=== PATIENT | female | born 1995 | race Caucasian/White ===

== ENCOUNTER 2019-10-27 19:33 | Emergency (ER) | payer BC, OTHER, SELFPAY ==
[2019-10-27 19:43] VITALS: BP 131/76; PULSE 91; RESP 16; TEMP 37.2; O2SAT 100
[2019-10-27 19:44] VITALS: O2SAT 100
--- NOTE | 2019-10-27 19:47 | ED.GENADULT ---
HPI - General Adult General Chief complaint: Upper Respiratory Infection Stated complaint: Congestion Time Seen by Provider: 10/27/19 19:50 Source: patient and RN notes reviewed Mode of arrival: ambulatory Limitations: no limitations History of Present Illness HPI narrative: This is a 24 years old female presented office for evaluation of cough for 2-day. Cough is really bad today with chest tightness. Admits to history of asthma. She took her albuterol inhaler with no relief. Her daughter is sick with cold symptoms. No other treatment prior to arrival except hot shower. She does not smoke. Related Data Home Medications Medication Instructions Recorded Confirmed albuterol sulfate [ProAir HFA] 2 puff INHALATION Q4-6H PRN 10/27/19 10/27/19 Allergies Allergy/AdvReac Type Severity Reaction Status Date / Time codeine AdvReac Intermediate NAUSEA/VOMI Verified 10/27/19 19:36 TING Review of Systems Review of Systems: Narrative: CONSTITUTIONAL:Denies fever ENT: Reports head congestion CARDIOVASCULAR: Denies chest pain except when she coughs RESPIRATORY: Reports dyspnea, cough GASTROINTESTINAL: Denies abdominal pain, nausea, vomiting, diarrhea. GENITOURINARY: Denies urinary symptoms or discharge SKIN: Denies rash MUSCULOSKELETAL: Denies acute back pain NEUROLOGIC: Denies lightheaded PMFSH Past Medical History Medical History (Updated 10/27/19 @ 19:54 by MELANIE Dia) ADHD Asthma Surgical History Surgical History (Updated 09/08/19 @ 18:50 by Le Moreau) History of tonsillectomy Social History Social History (Updated 09/08/19 @ 18:51 by Le Moreau) Smoking status: Never smoker Gender identity (if verbalized by the patient): Female Comments At time of signature, I agree with nursing past medical, surgical, social and family history. There is no relevant family history pertinent to the presenting complaint. Exam Narrative: Exam Narrative: GENERAL: This is a well-nourished, well-developed patient, in no apparent distress,Able to talk full sentences. EYES: sclera clear/white. Vision is grossly intact. EARS: External ears normal, auditory canals clear and without drainage, TMs normal without perforation. Hearing grossly intact. NOSE: External nose normal with no obvious nasal discharge, nares without redness, no rhinorrhea. THROAT: Mucous membranes moist, posterior pharynx clear. NECK: Neck supple, non-tender without lymphadenopathy, masses or thyromegaly. CARDIOVASCULAR: Regular rate and rhythm without murmurs, gallops, or rubs. RESPIRATORY: Clear to auscultationWith occasional cough noted during examination. Breath sounds equal bilaterally. No wheezes, rales, or rhonchi. No use of accessory muscles or pulse lip breathing. GASTROINTESTINAL: Abdomen soft, non-tender, nondistended. Bowel sounds are active. No hepato-splenomegaly, or palpable masses. No guarding. SKIN: warm, intact with no suspicious lesions or rash, good texture and turgor. NEURO: awake, alert, and oriented to person, place and time. There were no obvious focal neurologic abnormalities. Steady gait Candi Coma Scale Eye Opening: Spontaneous 4 [place] Coma Scale Motor: Obeys Commands 6 [place] Coma Scale Verbal: Oriented 5 Course Vital Signs Vital signs: Vital Signs Temperature 99.0 F 10/27/19 19:43 Pulse Rate 91 10/27/19 19:43 Respiratory Rate 16 10/27/19 19:43 Blood Pressure 131/76 10/27/19 19:43 Pulse Oximetry 100 10/27/19 19:43 Temperature 99.0 F 10/27/19 19:43 Pulse Rate 91 10/27/19 19:43 Respiratory Rate 16 10/27/19 19:43 Blood Pressure 131/76 10/27/19 19:43 Pulse Oximetry 100 10/27/19 19:43 Medical Decision Making MDM Narrative Medical decision making narrative: Discharge instructions reviewed with patient, as well as provided in writing per nursing staff. The instructions also include specific and strict return/GO TO THE ER as well as f/u information.
== END 2019-10-27 19:59 | disposition home or self-care (01) ==
PROVIDERS: Emergency Provider Nurse Practitioner
DX: J45.20 Mild intermittent asthma, uncomplicated (principal)
CPT/HCPCS: 99213; G0463

== ENCOUNTER 2021-03-10 15:00 | Emergency (ER) | payer BC, OTHER, SELFPAY ==
[2021-03-10 15:14] VITALS: BP 130/76; PULSE 101; RESP 16; TEMP 36.8; O2SAT 99
--- NOTE | 2021-03-10 15:37 | ED.GENADULT ---
HPI - General Adult General Chief complaint: Urogenital-Female Stated complaint: uti Time Seen by Provider: 03/10/21 15:37 Source: patient and RN notes reviewed Mode of arrival: ambulatory Limitations: no limitations History of Present Illness HPI narrative: 26-year-old female presents with urinary complaints for the past 5 days. Domonique reports increasing symptoms daily. Dysuria consists of burning and frequency. ?Azo was taken last today in the AM without relief. ?Denies fever. ?No significant pelvic pain. ?No vaginal discharge.? No concerns for STDs. ?Exacerbating factors urinating.? Denies hematuria or vaginal bleeding. ?LMP 02/16/2021. No flank pain. ?Denies nausea, vomiting, and abdominal pain.? Tolerating liquids well.? Remains active. ?The patient reports she has not been diagnosed with COVID-19. The patient reports she is not waiting for the results of a COVID-19 lab test. ?The patient reports he does not have chills, weakness, or fatigue. ?The patient reports he does not have a new or worsening cough or shortness of breath. ?Denies chest pain. ?The patient reports he does not have any rhinorrhea, congestion, loss of taste or smell, sore throat, and diarrhea. ?Denies recent traveling. Denies concerns for COVID-19 or exposures. ?At this time, the patient is not suspected of having COVID-19. ? Some parts of this dictation were generated by voice recognition software and may contain typographical and/or grammatical inaccuracies. Related Data Home Medications Medication Instructions Recorded Confirmed albuterol sulfate [ProAir HFA] 2 puff INHALATION Q4-6H PRN 10/27/19 10/27/19 Allergies Allergy/AdvReac Type Severity Reaction Status Date / Time codeine AdvReac Intermediate NAUSEA/VOMI Verified 10/27/19 19:36 TING Review of Systems Review of Systems: Narrative: CONSTITUTIONAL: Denies fever, chills, sweats. EYES: Denies visual changes, redness, discharge. ENT: Denies rhinorrhea, congestion, sore throat, otalgia. CARDIOVASCULAR: Denies chest pain, palpitations, edema. RESPIRATORY: Denies dyspnea, wheezing, cough. GASTROINTESTINAL: Denies abdominal pain, nausea, vomiting, diarrhea. GENITOURINARY: Complains of dysuria (burning and frequency). Denies hematuria, abnormal discharge. SKIN: Denies rash or itching. MUSCULOSKELETAL: Denies acute back pain, joint pain, or myalgia. NEUROLOGIC: Denies numbness or focal weakness. PSYCHIATRIC: Denies anxiety or depression. All systems reviewed & are unremarkable except as noted in HPI and below. [facility] Past Medical History Medical History ADHD Asthma Surgical History Surgical History History of tonsillectomy Family History Family History (Updated 03/10/21 @ 15:51 by MELANIE Gaston) Father Asthma Mother Alive and well Social History Social History (Updated 03/10/21 @ 15:51 by MELANIE Gaston) Smoking packs per day: 0.5 Smoking cigarettes per day: 10.0 Years smoked: 3.5 Smoking pack-years: 1.75 Smoking status: Current every day smoker Tobacco type: cigarettes Second hand tobacco smoke exposure: Yes (significant other) Alcohol intake: current Substance use: never Substance use type: does not use Living arrangements: with family Occupation/Education: occupation Gender identity (if verbalized by the patient): Female Sexual Orientation (if Verbalized by the Patient): Straight or Heterosexual Comments At time of signature, agree with the nurse past medical, surgical, social, and family history.? There is no relevant family history pertinent to the presenting complaint. Exam Narrative: Exam Narrative: GENERAL: This is a well-nourished, well-developed patient, in no apparent distress.? Talks in full sentences and ambulates with steady gait without dyspnea. HEAD: Normocephalic, atraumatic. EYES: PERRL. Scler
== END 2021-03-10 15:54 | disposition home or self-care (01) ==
PROVIDERS: Emergency Provider Nurse Practitioner Family
DX: R30.0 Dysuria (principal); F17.210 Nicotine dependence, cigarettes, uncomplicated; F90.9 Attention-deficit hyperactivity disorder, unspecified type; J45.909 Unspecified asthma, uncomplicated
CPT/HCPCS: 81003; 87077; 87086; 87088; 87186; 99213; G0463

== ENCOUNTER 2021-03-31 10:20 | Emergency (ER) | payer BC, OTHER, SELFPAY ==
[2021-03-31 10:29] VITALS: BP 117/71; PULSE 99; RESP 16; TEMP 36.6; O2SAT 99
--- NOTE | 2021-03-31 10:43 | ED.FEMALEGU ---
HPI - Female Genitourinary General Chief complaint: Urogenital-Female Stated complaint: UTI Time Seen by Provider: 03/31/21 10:44 Source: patient Mode of arrival: ambulatory Limitations: no limitations History of Present Illness HPI Narrative: Domonique Anderson is a 26 yo female with a history for UTI who [facility] complaining of dysuria. She was treated 2 to 3 weeks ago with Macrobid for similar symptoms. Mild suprapubic pain. Related Data Home Medications Medication Instructions Recorded Confirmed albuterol sulfate [ProAir HFA] 2 puff INHALATION Q4-6H PRN 10/27/19 03/31/21 Allergies Allergy/AdvReac Type Severity Reaction Status Date / Time codeine AdvReac Intermediate NAUSEA/VOMI Verified 03/31/21 10:43 TING Review of Systems Review of Systems: Narrative: CONSTITUTIONAL: Denies fever, chills, sweats. EYES: Denies visual changes, redness, discharge. ENT: Denies rhinorrhea, congestion, sore throat, otalgia. CARDIOVASCULAR: Denies chest pain, palpitations, edema. RESPIRATORY: Has dyspnea, wheezing, cough GASTROINTESTINAL: Denies abdominal pain, nausea, vomiting, diarrhea. GENITOURINARY: Denies dysuria, hematuria, abnormal discharge SKIN: Denies rash or itching. NEUROLOGIC: Denies numbness, or focal weakness. PSYCHIATRIC: Denies anxiety or depression. [facility] Past Medical History Medical History ADHD Asthma Surgical History Surgical History History of tonsillectomy Family History Family History (Updated 03/31/21 @ 10:51 by Lauren Rowe CNP) Father Asthma Mother Alive and well Social History Social History Smoking packs per day: 0.5 Smoking cigarettes per day: 10.0 Years smoked: 3.5 Smoking pack-years: 1.75 Smoking status: Current every day smoker Tobacco type: cigarettes Second hand tobacco smoke exposure: Yes (significant other) Alcohol intake: current Substance use: never Substance use type: does not use Gender identity (if verbalized by the patient): Female Comments At time of signature, I agree with nursing past medical, surgical, social and family history. There is no relevant family history pertinent to the presenting complaint. Exam Narrative: Exam Narrative: GENERAL: This is a well-nourished, well-developed patient, in mild distress. HEAD: normocephalic, atraumatic. EYES: Sclera clear/white. Vision is grossly intact. EARS: External ears normal, Hearing grossly intact. NOSE: External nose normal without nasal discharge, nares without redness, no rhinorrhea. THROAT: Mucous membranes moist, NECK: Neck supple, CARDIOVASCULAR: Regular rate and rhythm without murmurs, gallops, or rubs. RESPIRATORY: Clear to auscultation. Breath sounds equal bilaterally. No wheezes, rales, or rhonchi. GASTROINTESTINAL: Abdomen soft, SKIN: warm, intact with no suspicious lesions or rash, good texture and turgor. NEURO: awake, alert, and oriented to person, place and time. There were no obvious focal neurologic abnormalities. Steady gait EXTREMITIES: Normal range of motion. BACK: Nontender without deformity Course Course Emergency Course: [facility] with complaints of recurrent dysuria and burning with urination, she was treated 2 weeks ago with Macrobid Urine dip was negative for everything except trace leukocytes Started on ceftriaxone started on cephalexin 500 mg twice daily x3 days Referred to urologist Vital Signs Vital signs: Vital Signs Temperature 97.8 F 03/31/21 10:29 Pulse Rate 99 03/31/21 10:29 Respiratory Rate 16 03/31/21 10:29 Blood Pressure 117/71 03/31/21 10:29 Pulse Oximetry 99 03/31/21 10:29 Temperature 97.8 F 03/31/21 10:29 Pulse Rate 99 03/31/21 10:29 Respiratory Rate 16 03/31/21 10:29 Blood Pressure 117/71
== END 2021-03-31 11:03 | disposition home or self-care (01) ==
PROVIDERS: Emergency Provider Nurse Practitioner
DX: R30.0 Dysuria (principal); J45.909 Unspecified asthma, uncomplicated
CPT/HCPCS: 81003; 99213; G0463

== ENCOUNTER 2021-06-06 16:49 | Emergency (ER) | payer BC, OTHER, SELFPAY ==
--- NOTE | ~2021-06-06 | US_ITS ---
EXAMINATION: US OB <=14 wk fetus w TV DATE: 06/06/2021 19:11 INDICATION: Vaginal bleeding during first trimester TECHNIQUE: Real-time pelvic ultrasound utilizing both a transvaginal and transabdominal probe was pe rformed. The interpreting radiologist was not present for the study. COMPARISON: None. FINDINGS: The uterus measures 10.4 x 4.7 x 5.3 cm. There is an intrauterine gestational sac. A yolk sac is see n but no definitive pole yet evident. The mean sac diameter measures 1.3 cm, which correlates w ith an estimated gestational age of 6 weeks and 0 days. No evident subchorionic hematoma. The right ovary measures 3.2 x 1.9 x 1.7 cm and contains a 1.8 cm thick-walled corpus luteum cyst. Th e left ovary measures 3.2 x 1.1 x 1.3 cm. Vascular flow with arterial waveforms identified at both ov megan on color Doppler. There is no free fluid in the pelvis. IMPRESSION: 1. Intrauterine gestational sac with yolk sac but no discernible pole yet evident likely due to early stage of . 2. Gestational age by ultrasound of 6 weeks 0 day(s) +/- 4 day(s) with ultrasound estimated date of delivery (SOCO) of 01/30/2022. Reviewed, dictated and finalized at location A. IMPRESSION: 1. Intrauterine gestational sac with yolk sac but no discernible pole yet evident likely due to early stage of . 2. Gestational age by ultrasound of 6 weeks 0 day(s) +/- 4 day(s) with ultraso und estimated date of delivery (SOCO) of 01/30/2022.
[2021-06-06 16:56] VITALS: BP 141/81; PULSE 100; RESP 18; TEMP 36.8; O2SAT 100
[2021-06-06 18:10] LABS: Basophils Absolute Auto 0.1 K/mm3 (0.0-0.1); Basophils Percent Auto 0.5 % (0.2-1.2); Eosinophils Absolute Auto 0.3 K/mm3 (0-0.3); Eosinophils Percent Auto 3.1 % (0-4.4); Hematocrit 39.8 % (37.0-47.0); Hemoglobin 13.3 g/dL (12.0-15.0); Immature Granulocyte Absolute 0.03 K/mm3 (0.00-0.031); Immature Granulocyte Percent A 0.3 % (0-0.5); Lymphocytes Absolute Auto 2.57 K/mm3 (0.9-3.2); Lymphocytes Percent Auto 24.2 % (18.3-44.2); Mean Corpuscular HGB Conc 33.4 g/dl (32-36); Mean Corpuscular Hemoglobin 28.2 pg (26-34); Mean Corpuscular Volume 84.3 fl (80-100); Mean Platelet Volume 11.9 fl (7.4-10.4); Monocytes Absolute Auto 0.6 K/mm3 (0.1-0.6); Monocytes Percent Auto 5.7 % (2.6-8.5); Neutrophils Percent Auto 66.2 % (45.5-73.1); Platelet Count Result 263 k/mm3 (150-375); Red Blood Count 4.72 M/mm3 (4.2-5.4); Red Cell Distribution Width 12.9 % (11.5-14.5); White Blood Count 10.6 K/mm3 (4.5-10.0)
--- NOTE | 2021-06-06 18:21 | ED.GENADULT ---
HPI - General Adult General Chief complaint: Vaginal Bleeding Stated complaint: 7 weeks /Bleeding Time Seen by Provider: 06/06/21 17:56 Source: patient History of Present Illness HPI narrative: Patient is a 26 y/o female complaining of mild vaginal bleeding earlier today. She describes it as brownish discharge. There is no alleviating or exacerbating factor. She has some nausea and vomiting which she has been going on for while due to . 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 Thuy Mclean. Related Data Home Medications Medication Instructions Recorded Confirmed albuterol sulfate [ProAir HFA] 2 puff INHALATION Q4-6H PRN 10/27/19 03/31/21 Allergies Allergy/AdvReac Type Severity Reaction Status Date / Time codeine AdvReac Intermediate NAUSEA/VOMI Verified 06/06/21 18:04 TING Review of Systems Constitutional: Constitutional: Denies chills, Denies fever(s), Denies headache(s) and Denies weakness Eyes: Eyes: Denies blurry vision ENT: Denies headache(s) and Denies neck pain Cardiovascular: Cardiovascular: Denies chest pain and Denies dyspnea Respiratory: Respiratory: Denies cough and Denies dyspnea Gastrointestinal: Gastrointestinal: Denies abdominal pain, Denies diarrhea, Reports nausea and Reports vomiting Genitourinary: Genitourinary: Reports abnormal vaginal bleeding, Denies hematuria and Denies dysuria Musculoskeletal: Musculoskeletal: Denies back pain and Denies neck pain Neurologic: Denies headache(s) and Denies weakness PMFSH Past Medical History Medical History ADHD Asthma Surgical History Surgical History History of tonsillectomy Family History Family History Father Asthma Mother Alive and well Social History Social History Smoking packs per day: 0.5 Smoking cigarettes per day: 10.0 Years smoked: 3.5 Smoking pack-years: 1.75 Smoking status: Current every day smoker Tobacco type: cigarettes Second hand tobacco smoke exposure: Yes (significant other) Alcohol intake: current Substance use: never Substance use type: does not use Gender identity (if verbalized by the patient): Female Sexual Orientation (if Verbalized by the Patient): Straight or Heterosexual Exam Const: General: no acute distress and well developed Orientation/consciousness: oriented to person, oriented to place, oriented to time and patient oriented x3 HENMT: Head: normocephalic Ears: external ears normal General nose exam: Normal external nose present Eyes: General: appearance normal, both eyes and all related structures Conjunctivae: conjunctivae normal Neck: Neck: normal visual inspection and full ROM Chest: Chest palpation & inspection: normal inspection of the chest and no tenderness Resp: Effort & Inspection: normal respiratory effort Auscultation: clear to auscultation bilaterally Cardio: Rate: regular rate Rhythm: regular rhythm GI: GI Palp: No abdominal tenderness and Yes Soft to palpation Skin: General skin exam: normal color and turgor normal Neuro: General: oriented to person, oriented to place, oriented to time and patient oriented x3 Cognition (Neuro): normal cognition Extrem: General: normal to inspection, full ROM and no pedal edema Psych: Appearance: grossly normal Mental Status: mental status grossly normal Affect: normal affect Course Consultations Consultation #1: Discussed with Dr. Rabago, who agrees with plan for discharge. He states that they will follow up with patient in 2-3 days for repeat labs. Date: 06/06/21 Time: 20:44 Vital Signs Vital signs: Vital Signs Temperature 36.8 C 06/06/21 16:56 Pulse Rate 100 06/06/21 16:56 Respiratory Rate 18 06/06/21 16:56 Blood Pressure 141/81 H 06/06/21 16:56 Pulse Ox
[2021-06-06 19:31] VITALS: BP 110/69; PULSE 90; RESP 18; O2SAT 98
[2021-06-06 20:19] LABS: Add Urine Microscopic? YES; Appearance Urine Clear (Clear); Bilirubin Urine Negative (Negative); Blood Urine 1+ (Negative); Color Urine Yellow (Yellow); Glucose Urine UA Negative (Negative); Ketones Urine Negative (Negative); Leukocyte Esterase Ur Trace LEU/UL (Negative); Mucus Urine Few /lpf; Nitrate Urine Negative (Negative); Protein Urine Negative (Negative); Squamous Epithelial Cell Urine Few /hpf (Few); Urobilinogen Urine Negative mg/dL (<2.0)
[2021-06-06 20:30] LABS: Specific Grav Ur 1.031 (1.001-1.035)
[2021-06-06 21:18] VITALS: BP 109/77; PULSE 105; RESP 16; O2SAT 98
== END 2021-06-06 21:21 | disposition home or self-care (01) ==
PROVIDERS: Emergency Medicine; Emergency Provider Emergency Medicine
DX: O20.9 Hemorrhage in early pregnancy, unspecified (principal); O99.511 Diseases of the respiratory system complicating pregnancy, first trimester; J45.909 Unspecified asthma, uncomplicated; O99.331 Smoking (tobacco) complicating pregnancy, first trimester; F17.210 Nicotine dependence, cigarettes, uncomplicated; Z3A.01 Less than 8 weeks gestation of pregnancy
CPT/HCPCS: 36415; 76801; 76817; 81001; 84702; 85025; 85461; 99284

== ENCOUNTER 2021-08-09 15:56 | Emergency (ER) | payer BC, OTHER, SELFPAY ==
--- NOTE | ~2021-08-09 | XR_ITS ---
EXAMINATION: XR chest 2V 08/09/2021 16:56 INDICATION: Chest pain PROCEDURE: 2 view chest COMPARISON: 07/17/2007 FINDINGS: The lungs are clear. The cardiomediastinal silhouette is within normal limits. There are no pleural effusions. There is no pneumothorax suspected. IMPRESSION: 1: NO ACUTE CARDIOPULMONARY DISEASE. Reviewed, dictated and finalized at location A. [facility]
--- NOTE | 2021-08-09 16:01 | ECG_ITS ---
Measurements Intervals Alpha Rate: 92 P: 66 CT: 148 QRS: 72 QRSD: 81 T: 23 QT: 340 QTc: 421 Interpretive Statements SINUS RHYTHM POSSIBLE LEFT ATRIAL ENLARGEMENT BORDERLINE ST-T WAVE ABNORMALITY- INFERIOR LEADS BORDERLINE ECG Electronically Signed On 08-09-2021 16:32:25 [employer] [employer] by Vikash Wilson D.O.
[2021-08-09 16:04] VITALS: BP 123/65; PULSE 104; RESP 19; TEMP 36.4; O2SAT 100
[2021-08-09 16:20] LABS: Basophils Percent Auto 0.5 % (0.2-1.2); Eosinophils Absolute Auto 0.2 K/mm3 (0-0.3); Hematocrit 36.7 % (37.0-47.0); Hemoglobin 12.9 g/dL (12.0-15.0); Immature Granulocyte Absolute 0.03 K/mm3 (0.00-0.031); Immature Granulocyte Percent A 0.4 % (0-0.5); Lymphocytes Absolute Auto 2.48 K/mm3 (0.9-3.2); Lymphocytes Percent Auto 29.1 % (18.3-44.2); Mean Corpuscular HGB Conc 35.1 g/dl (32-36); Mean Corpuscular Hemoglobin 28.2 pg (26-34); Mean Corpuscular Volume 80.1 fl (80-100); Mean Platelet Volume 11.8 fl (7.4-10.4); Monocytes Absolute Auto 0.7 K/mm3 (0.1-0.6); Monocytes Percent Auto 7.9 % (2.6-8.5); Neutrophils Absolute Auto 5.1 K/mm3 (1.3-6.7); Neutrophils Percent Auto 60.1 % (45.5-73.1); Platelet Count Result 221 k/mm3 (150-375); Red Blood Count 4.58 M/mm3 (4.2-5.4); Red Cell Distribution Width 12.2 % (11.5-14.5); White Blood Count 8.5 K/mm3 (4.5-10.0)
[2021-08-09 16:33] LABS: Partial Thromboplastin Time 28.1 SECONDS (22.3-36.8)
[2021-08-09 16:35] LABS: Alanine Aminotransferase 27 U/L (4-35); Albumin Level 4.6 g/dL (3.5-5.1); Alkaline Phosphatase 68 U/L (38-126); Anion Gap 12 mmol/L (8-16); Aspartate Amino Transferase 24 U/L (14-36); Bilirubin,Total 0.4 mg/dL (0.2-1.3); Blood Urea Nitrogen 16 mg/dL (7-17); Calcium 9.6 mg/dL (8.4-10.2); Carbon Dioxide 20 mmol/L (22-30); Chloride 105 mmol/L (98-107); Estimated CRCL calculation 130 ml/min; Estimated Glomerular Filt Rate > 60; Glucose 93 mg/dL (65-110); Lipase 59 U/L (23-300); Potassium 3.6 mmol/L (3.4-5.0); Sodium 137 mmol/L (137-145)
[2021-08-09 16:45] LABS: Troponin I < 0.012 ng/mL (0.000-0.034)
[2021-08-09 17:28] VITALS: BP 111/68; PULSE 85; RESP 18; O2SAT 100
[2021-08-09] MEDS: methylPREDNISolone SOD SUCC 125 MG VIAL IV PUSH (18:26)
[2021-08-09] MEDS: KETOROLAC 30 MG/ML VIAL (*BKC) IV PUSH (19:00)
[2021-08-09 19:19] VITALS: BP 118/64; PULSE 82; RESP 18; O2SAT 98
[2021-08-09 19:41] LABS: CRP < 0.5 mg/dL (<1.0)
[2021-08-09 19:42] LABS: Erythrocyte Sedimentation Rate 15 mm/hr (0-20)
[2021-08-09 19:50] LABS: Troponin I < 0.012 ng/mL (0.000-0.034)
[2021-08-09 20:15] VITALS: BP 127/61; PULSE 85; RESP 20; O2SAT 99
--- NOTE | 2021-08-09 20:28 | ED.CHESTPAIN ---
HPI - Chest Pain General Chief Complaint: Chest Pain Stated Complaint: Chest Pain/ Back Pain Time Seen by Provider: 08/09/21 17:30 Source: patient Mode of arrival: EMS Limitations: no limitations History of Present Illness HPI narrative: Patient is 26-year-old female with chief complaint of pain and tenderness to the anterior portion of her chest and to her upper back. Patient reports that she had viral URI symptoms a few days ago but they have resolved. Patient reports that she was coughing and then began having these symptoms. Patient denies shortness of breath, fever, chills, nausea, vomiting, diarrhea. Patient does not have any palpitations. She denies cardiac history. Patient denies syncope, changes in vision or hearing. Patient is not a smoker and does not have calf pain, swelling or tenderness. Related Data Home Medications Medication Instructions Recorded Confirmed albuterol sulfate [ProAir HFA] 2 puff INHALATION Q4-6H PRN 10/27/19 03/31/21 Allergies Allergy/AdvReac Type Severity Reaction Status Date / Time codeine AdvReac Intermediate NAUSEA/VOMI Verified 08/09/21 19:21 TING Review of Systems Review of Systems: CONSTITUTIONAL: Denies fever, chills, or sweats. EYES: Denies visual changes, redness, or discharge. ENT: Denies rhinorrhea, congestion, sore throat, or otalgia. CARDIOVASCULAR: Reports chest wall pain denies palpitations, or edema. RESPIRATORY: Denies cough or dyspnea. GASTROINTESTINAL: Denies abdominal pain, nausea, vomiting, or diarrhea. GENITOURINARY: Denies dysuria or hematuria. SKIN: Denies rash or itching. MUSCULOSKELETAL: Reports upper back pain, denies joint pain, or myalgia. NEUROLOGIC: Denies headache, numbness, dizziness, or weakness. PSYCHIATRIC: Denies anxiety or depression. [facility] Past Medical History Medical History ADHD Asthma Surgical History Surgical History History of tonsillectomy Family History Family History Father Asthma Mother Alive and well Social History Social History Smoking packs per day: 0.5 Smoking cigarettes per day: 10.0 Years smoked: 3.5 Smoking pack-years: 1.75 Smoking status: Current every day smoker Tobacco type: cigarettes Second hand tobacco smoke exposure: Yes (significant other) Alcohol intake: current Substance use: never Substance use type: does not use Gender identity (if verbalized by the patient): Female Sexual Orientation (if Verbalized by the Patient): Straight or Heterosexual Exam Narrative: GENERAL: Well-appearing, well-nourished, and in no acute distress. HEAD: Normocephalic, atraumatic. EYES: PERRLA and EOMI. NECK: Supple. No adenopathy or masses. Range of motion intact without rigidity. CHEST: Pain reproduced with palpation of anterior chest wall and posterior thorax. Pain not improved with leaning forward.clear to auscultation. No respiratory distress. No wheezes rales or rhonchi HEART: No friction rub auscultated. Regular rate and rhythm. No murmur heard. Normal peripheral pulses. ABDOMEN: Soft, nontender, nondistended, normal active bowel sounds. EXTREMITIES: Normal range of motion. No edema. SKIN: Warm, dry, no rash. NEURO: No focal deficits. Alert and oriented x3. PSYCH: Normal mood and affect. Course Vital Signs Vital signs: Vital Signs Temperature 97.6 F 08/09/21 16:04 Pulse Rate 104 H 08/09/21 16:04 Respiratory Rate 19 08/09/21 16:04 Blood Pressure 123/65 08/09/21 16:04 Pulse Oximetry 100 08/09/21 16:04 Temperature 97.6 F 08/09/21 16:04 Pulse Rate 85 08/09/21 20:15 Respiratory Rate 20 08/09/21 20:15 Blood Pressure 127/61 08/09/21 20:15 Pulse Oximetry 99 08/09/21 20:15 MDM - Chest Pain MDM Narrative Medical decision making
[2021-08-10 18:14] LABS: SARS-CoV-2 RNA PCR Negative
== END 2021-08-09 20:15 | disposition home or self-care (01) ==
PROVIDERS: Physician Assistant; Emergency Provider Emergency Medicine
DX: Z20.822 Contact with and (suspected) exposure to COVID-19 (principal); R07.89 Other chest pain; B34.9 Viral infection, unspecified; J45.909 Unspecified asthma, uncomplicated; F90.9 Attention-deficit hyperactivity disorder, unspecified type
CPT/HCPCS: 36415; 71046; 80053; 81025; 83690; 84484; 85025; 85610; 85652; 85730; 86140; 93005; 96365; 96375; 99284; C9803; J0131; J1885; J2930; U0003; U0005